=== PATIENT | female | born 1990 | race Caucasian/White ===

== ENCOUNTER 2017-01-30 20:26 | Emergency (ER) | payer OTHER ==
[~2017-01-30 20:26] MED LIST: AUGMENTIN 875-1 EACH PO; MOTRIN 600 MG600 MG PO; PREDNISONE50 M1 PO; PROVENTIL HFA6.7 GM INH
[2017-01-30 20:39] VITALS: BP 144/100
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
== END 2017-01-30 21:55 ==
LOC: ERH 20:26
DX: T65.91XA Toxic effect of unspecified substance, accidental (unintentional), initial encounter (principal); T26.91XA Corrosion of right eye and adnexa, part unspecified, initial encounter; T26.92XA Corrosion of left eye and adnexa, part unspecified, initial encounter

== ENCOUNTER 2018-05-05 14:49 | Emergency (ER) | payer OTHER, MEDICARE ==
[~2018-05-05] VITALS: Ht 170.2 cm; Wt 104.3 kg
[~2018-05-05 14:49] MED LIST changes: +PERCOCET 5-3251 EACH PO
[2018-05-05 16:56] LABS: ABSOLUTE BASOPHIL COUNT 0 /CUMM (0.0-0.2); ABSOLUTE EOSINOPHIL COUNT 0 /CUMM (0.0-0.7); ABSOLUTE GRANULOCYTE CT 3.8 /CUMM (1.4-6.5); ABSOLUTE LYMPH COUNT 1.7 /CUMM (1.2-3.4); ABSOLUTE MONOCYTE COUNT 0.5 /CUMM (0.10-0.60); BASOPHIL % 0.3 % (0.0-2.0); EOSINOPHIL % 0 % (0-5); GRANULOCYTE % 63.2 % (42.2-75.2); HEMATOCRIT 43.6 % (37-47); MEAN CORPUSCULAR HGB 29.4 PG (27.0-31.0); MEAN CORPUSCULAR HGB CONC 33.5 G/DL (33.0-37.0); MEAN CORPUSCULAR VOLUME 87.5 FL (81.0-99.0); MEAN PLATELET VOLUME 8.5 FL (7.4-10.4); PLATELET COUNT 316 /CUMM (130-400); RBC DISTRIBUTION WIDTH 13.2 % (11.5-14.5); RED BLOOD CELL CT 4.98 /CUMM (4.20-5.40)
--- NOTE | 2018-05-05 17:05 | ED GI/GU/ABDOMINAL COMPLAINT ---
History of Present Illness General Chief Complaint: Female Urogenital Problems Stated Complaint: BLOOD IN URINE Source: patient Exam Limitations: no limitations Vital Signs & Intake/Output Vital Signs & Intake/Output Vital Signs Date Time Temp Pulse Resp B/P B/P Pulse O2 O2 Flow FiO2 Mean Ox Delivery Rate 05/05 1851 98.8 88 16 162/75 98 Room Air 05/05 1847 Room Air 05/05 1458 98.4 96 18 157/92 98 Room Air Allergies Coded Allergies: quetiapine (BLURRY VISION 01/03/18) Reconcile Medications Albuterol Sulfate (Proventil Hfa) 90 MCG HFA.AER.AD 2 PUF INH Q4 PRN wheeze Amoxicillin/Potassium Clav (Augmentin 875-125 Tablet) 875 MG-125 MG TABLET 1 TAB PO BID tooth infection Amoxicillin/Potassium Clav (Augmentin 875-125 Tablet) 875 MG-125 MG TABLET 1 TAB PO BID bronchitis Ibuprofen (Motrin 600 MG Tab) 600 MG TAB 1 TAB PO Q8 PRN PAIN Oxycodone HCl/Acetaminophen (Percocet 5-325 MG Tablet) 5 MG-325 MG TABLET 1 TAB PO BID pain Prednisone 50 MG TABLET 1 TAB PO DAILY bronchitis Sulfamethoxazole/Trimethoprim (Bactrim Ds Tablet) 800 MG-160 MG TABLET 1 TAB PO BID UTI Triage Note: 27 YO FEMALE TO TRIAGE FOR EVAL OF BLOOD IN URINE. STATES HER MENSES ENDED YESTERDAY AND SHE CAN TELL THIS IS DIFFERENT. DENIES ANY PAIN. STATES SLIGHT PAIN TO URINATION. HX OF CYST ON OVARIES. Triage Nurses Notes Reviewed? yes ? N Is pt currently ? No Onset: Abrupt Duration: day(s): Timing: recent history No Modifying Factors: none HPI: 27-year-old female comes into the emergency room for further evaluation of blood in her urine and associated lower abdominal pressure. She reports that she is just finishing up her menstrual cycle but this is blood in her urine that is not related. She denies any fever chills vomiting. She has a history of PCOS. She comes in for further evaluation. Past History Travel History Traveled to [place] past 21 day No Medical History Any Pertinent Medical History? 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 No Review of Systems Review of Systems Constitutional: Reports: no symptoms. EENTM: Reports: no symptoms. Respiratory: Reports: no symptoms. Cardiovascular: Reports: no symptoms. GI: Reports: see HPI. Genitourinary: Reports: see HPI. Musculoskeletal: Reports: no symptoms. Skin: Reports: no symptoms. Neurological/Psychological: Reports: no symptoms. Hematologic/Endocrine: Reports: no symptoms. Immunologic/Allergic: Reports: no symptoms. All Other Systems: Reviewed and Negative Physical Exam Physical Exam General Appearance: well developed/nourished, alert, awake Head: atraumatic Eyes: Bilateral: normal appearance. Ears, Nose, Throat, Mouth: hearing grossly normal, moist mucous membrane Neck: normal inspection Respiratory: no respiratory distress Gastrointestinal: soft, non-tender Back: normal inspection Extremities: normal range of motion Neurologic/Psych: awake, alert Core Measures ACS in differential dx? No Sepsis Present: No Sepsis Focused Exam Completed? No Progress Differential Diagnosis: appendicitis, diverticulitis, kidney stone, ovarian cyst , ovarian torsion, UTI/pyelo Plan of Care: Orders Procedure Date/time Status Add-on Test (ER Only) 05/05 1921 Active COMPREHENSIVE METABOLIC PANEL 05/05 1622 Complete CBC WITHOUT DIFFERENTIAL 05/05 1622 Complete URINE 05/05 1457 Complete URINALYSIS 05/05 1457 Complete Laboratory Tests 05/05/18 1646: Anion Gap 10, Estimated GFR > 60, BUN/Creatinine Ratio 23.3, Glucose 96, Calcium 10.6 H, Total Bilirubin 0.2, AST 23, ALT 38, Alkaline Phosphatase 73, Total Protein 7.6, Albumin 4.2, Globulin 3.4, Albumin/Globulin Ratio 1.2, CBC w Diff NO MAN DIFF REQ, RBC 4.98, MCV 87.5, MCH 29.4, MCHC 33.5, RDW 13.2, MPV 8.5, Gran % 63.2, Lymphocytes % 27.6, Monocytes % 8.9, Eosinophils % 0, Basophils % 0.3, Absolute Granulocytes 3.8, Absolute Lymphocytes 1.7, Absolute Monocytes 0.5 , Absolute Eosinophils 0, Absolute Basophils 0 05/05/18 1543: Urine Color PINK H, Urine Clarity HAZY H, Urine pH 6.0, Ur Specific Davidson >= 1.030, Urine Protein 100 H, Urine Ketones NEG, Urine Nitrite NEG, Urine Bilirubin NEG, Urine Urobilinogen 0.2, Ur Leukocyte Esterase NEG, Ur Microscopic SEDIMENT EXAMINED, Urine RBC >75 H, Urine WBC 1-3 H, Ur Epithelial Cells MOD H, Urine Crystals 3+ CA OX H, Urine Bacteria MOD H, Urine Mucus FEW, Micro UA Comment BUDDING YEAST H, Urine Hemoglobin LARGE H, Urine Glucose NEG, Urine Test NEGATIVE Diagnostic Imaging: Viewed by Me: CT Scan. Discussed w/RAD: CT Scan. Radiology Impression: PATIENT: AUDIE ARAUZ PRESENT AGE: 27 PATIENT ACCOUNT NO: [id number] : 91 LOCATION: [facility] ORDERING PHYSICIAN: Anish SANTIAGO SERVICE DATE: 05/05/18 EXAM TYPE : CAT - CT ABD & PELVIS W/O IV CONTRAS EXAMINATION: CT ABDOMEN AND PELVIS WITHOUT CONTRAST CLINICAL INFORMATION: Evaluate for renal stone. Back pain and hematuria. COMPARISON: No relevant prior imaging. TECHNIQUE: Multidetector volumetric imaging was performed from the superior aspect of the liver through the pubic symphysis. Sagittal and coronal reformatted images were obtained on the technologist's workstation. DLP: 715.46 mGy-cm FINDINGS: LUNG BASES: Lung bases are clear. There is no pleural or pericardial effusion. LIVER, GALLBLADDER , AND BILIARY TREE: Liver attenuation is homogeneous and there is no evidence of a discrete hepatic parenchymal mass. The gallbladder is unremarkable with no evidence of radiopaque gallstones, gallbladder wall thickening, or obvious pericholecystic inflammatory changes. PANCREAS: Unremarkable. SPLEEN: Unremarkable. ADRENAL GLANDS: Unremarkable. KIDNEYS AND URETERS: Kidneys are symmetric in size. There is no abnormal perinephric inflammation or collection. No hydronephrosis or nephrolithiasis. No abnormal mass or calcification is visualized along the expected course of the right or left ureter. BLADDER: Unremarkable. GASTROINTESTINAL TRACT: The stomach and small bowel are unremarkable. No evidence to suggest obstruction. No free intraperitoneal air or fluid. There is intraluminal and gas and stool within a physiologically distended colon. A few diverticula are visualized within the distal descending colon and sigmoid. No evidence of acute diverticulitis. ABDOMINAL WALL: No significant hernia is appreciated. LYMPH NODES: No pathologically enlarged mesenteric or retroperitoneal lymph nodes. VASCULAR: The unenhanced abdominal aorta and inferior vena cava are unremarkable. PELVIC VISCERA: There is an anteverted uterus. No worrisome adnexal mass. OSSEOUS STRUCTURES: No acute osseous finding. No lytic or blastic osseous lesion. IMPRESSION: Normal noncontrast CT scan of the abdomen and pelvis. No discrete finding to provide an explanation for the patient's hematuria and suprapubic pain. DICTATED BY: Everett Amador MD DATE/TIME DICTATED:05/05/181835 REINSURANCE CLERK: ELROY DATE/TIME TRANSCRIBED:05/05/181835 CONFIDENTIAL, DO NOT COPY WITHOUT APPROPRIATE AUTHORIZATION. <Electronically signed in Other Vendor System> SIGNED BY: Everett Amador MD 05/05/181843 Initial ED EKG: none Departure Departure Disposition: HOME OR SELF CARE Condition: Stable Clinical Impression Primary Impression: UTI (urinary tract infection) Referrals: Bart Jung MD (PCP/Family) Additional Instructions: Take Bactrim as prescribed. Rest. Drink plenty fluids. Return if any concerns worsening symptoms. Please go over all results of today's visit with your primary care doctor. Contact your primary care doctor to let them know you were here in the emergency room. There may be nonspecific findings which may not be related to your visit today here in the emergency room but may require further evaluation and chronic monitoring by your primary care doctor. If you had a laceration today the chance of foreign body always remains. You should follow-up with your primary care doctor for recheck in 3-5 days for a wound check. If you had an x-ray done there is a chance that a fracture could have been missed on initial read and you should follow-up with your primary care doctor for repeat x-rays if symptoms persist. If your blood pressure was elevated here in the emergency room please have rechecked by fel[place] primary care doctor within the next 48. If you were prescribed a narcotic here in the emergency room or any type of controlled substances you're not allowed to drive while taking this medication or operate any type of heavy machinery. Narcotics can make you feel lightheaded dizziness nausea and can cause constipation. You may need to supervisor picking crew a stool softener. Thank you for choosing [facility] emergency room. Please return to the emergency room immediately if you have any other concerns worsening of symptoms. Departure Forms: Customer Survey General Discharge Information Prescriptions: Current Visit Scripts Sulfamethoxazole/Trimethoprim (Bactrim Ds Tablet) 1 TAB PO BID #14 TAB Comments 05/05/2018 7:19:25 PM Patient clinically looks well. Patient is no apparent distress. Patient is nontoxic-appearing. No evidence urine. Treated for possible tract infection. Patient is insistent that the menstrual period is not mixing with the urine. Follow-up with urologist if needed. Take antibiotics as prescribed.
--- NOTE | 2018-05-05 18:44 | CT SCAN REPORT ---
EXAMINATION: CT ABDOMEN AND PELVIS WITHOUT CONTRAST CLINICAL INFORMATION: Evaluate for renal stone. Back pain and hematuria. COMPARISON: No relevant prior imaging. TECHNIQUE: Multidetector volumetric imaging was performed from the superior aspect of the liver through the pubic symphysis. Sagittal and coronal reformatted images were obtained on the technologist's workstation. DLP: 715.46 mGy-cm FINDINGS: LUNG BASES: Lung bases are clear. There is no pleural or pericardial effusion. LIVER, GALLBLADDER, AND BILIARY TREE: Liver attenuation is homogeneous and there is no evidence of a discrete hepatic parenchymal mass. The gallbladder is unremarkable with no evidence of radiopaque gallstones, gallbladder wall thickening, or obvious pericholecystic inflammatory changes. PANCREAS: Unremarkable. SPLEEN: Unremarkable. ADRENAL GLANDS: Unremarkable. KIDNEYS AND URETERS: Kidneys are symmetric in size. There is no abnormal perinephric inflammation or collection. No hydronephrosis or nephrolithiasis. No abnormal mass or calcification is visualized along the expected course of the right or left ureter. BLADDER: Unremarkable. GASTROINTESTINAL TRACT: The stomach and small bowel are unremarkable. No evidence to suggest obstruction. No free intraperitoneal air or fluid. There is intraluminal and gas and stool within a physiologically distended colon. A few diverticula are visualized within the distal descending colon and sigmoid. No evidence of acute diverticulitis. ABDOMINAL WALL: No significant hernia is appreciated. LYMPH NODES: No pathologically enlarged mesenteric or retroperitoneal lymph nodes. VASCULAR: The unenhanced abdominal aorta and inferior vena cava are unremarkable. PELVIC VISCERA: There is an anteverted uterus. No worrisome adnexal mass. OSSEOUS STRUCTURES: No acute osseous finding. No lytic or blastic osseous lesion. IMPRESSION: Normal noncontrast CT scan of the abdomen and pelvis. No discrete finding to provide an explanation for the patient's hematuria and suprapubic pain.
[2018-05-05 18:51] VITALS: BP 162/75
[2018-05-05] MEDS ORDERED: BACTRIM DS TAB1 EACH PO (19:06)
== END 2018-05-05 19:14 ==
LOC: ERH 14:49
PROVIDERS: Physician Assistant Medical
DX: N39.0 Urinary tract infection, site not specified (principal)
CPT/HCPCS: 74176; 81001; 81025; 87086